=== PATIENT | male | born 1970 | race African-American/Black ===

== ENCOUNTER 2022-07-16 15:21 | Inpatient (IN) | payer BC ==
[~2022-07-16 15:21] MED LIST: Iopamidol-370 76% 500 ML 1 ML ONE
[2022-07-16] MEDS ORDERED: niCARdipine 25 MG/10 ML VIAL ONE (15:27)
[2022-07-16] MEDS ORDERED: Famotidine/PF 20 mg/2ml Vial ONE (15:53)
[2022-07-16] MEDS ORDERED: diphenhydrAMINE 50 MG/ML VIAL ONE (15:53)
[2022-07-16] MEDS ORDERED: methylPREDNISolone Sod Succ 40 MG VIAL ONE (15:53)
[2022-07-16 15:56] LABS: #Basophils 0.1 thou/uL (0.0-0.2); #Eosinphils 0.2 thou/uL (0.0-0.7); #Lymphocytes 2.3 thou/uL (1.20-3.40); #Monocytes 0.6 thou/uL (0.11-0.59); #Neutrophils 5.9 thou/uL (1.40-6.50); %Basophils 0.6 % (0.0-1.0); %Eosinophils 2.6 % (0.0-10.0); %Lymphocytes 24.8 % (21.0-51.0); %Monocytes 6.9 % (0.0-10.0); %Neutrophils 65.2 % (42.0-75.0); Hemoglobin 16.9 g/dL (14.0-18.0); Mean Corpuscular HGB CONC 32.9 g/dL (32.0-36.0); Mean Corpuscular Hemoglobin 29.2 pg (27.0-31.0); Mean Corpuscular Volume 88.8 fl (78.0-98.0); Mean Platelet Volume 8.3 fL (7.4-10.4); Platelet Count 261 thou/uL (130-400); RBC Distribution Width 12.4 % (11.5-14.5); Red Blood Cell (RBC) Count 5.79 mill/uL (4.70-6.10); White Blood Cell (WBC) Count 9.1 thou/uL (4.8-10.8)
[2022-07-16] MEDS ORDERED: Aspirin Chewable 81 MG TAB ONE (17:25)
[2022-07-16] MEDS ORDERED: Acetaminophen 650 MG Suppository PR PRN (17:41)
[2022-07-16] MEDS ORDERED: HYDROcodone/Acetaminophen 7.5/325 mg Tablet PO PRN (17:41)
[2022-07-16] MEDS ORDERED: Calcium Carbonate 500 MG ChewTAB PO PRN (17:41)
[2022-07-16] MEDS ORDERED: Acetaminophen 325 MG TAB PO PRN (17:41)
[2022-07-16] MEDS ORDERED: Bisacodyl 5 MG TAB PO PRN (17:41)
[2022-07-16 17:46] LABS: ALT (SGPT) 27 U/L (8-55); AST (SGOT) 42 U/L (5-34); Albumin 4.1 g/dL (3.5-5.0); Alkaline Phosphatase 87 U/L (40-110); Anion Gap 17 mmol/L (10-20); BUN (Urea Nitrogen) 21 mg/dL (8.9-20.6); Bilirubin, Total 0.6 mg/dL (0.2-1.2); Calc. Creatinine Clearance 0 mL/min (70-130); Calcium 9.5 mg/dL (7.8-10.44); Carbon Dioxide 25 mmol/L (22-29); Chloride 102 mmol/L (98-107); Estimated GFR 51; Globulin 4.3 g/dL (2.4-3.5); Glucose 140 mg/dL (70-105); Potassium 3.9 mmol/L (3.5-5.1); Protein, Total 8.4 g/dL (6.0-8.3); Sodium 140 mmol/L (136-145)
[2022-07-16] MEDS ORDERED: HumaLOG 300 UNITS/3 ML VIAL SC PRN (17:48)
[2022-07-16] MEDS ORDERED: Dextrose 50% Abboject 50 ML SYRINGE SLOW IVP PRN (17:48)
[2022-07-16] MEDS ORDERED: Dextrose 5% in Water 1,000 ML IV PRN (17:48)
[2022-07-16] MEDS ORDERED: Sodium Chloride 0.9% 1,000 ML IV SCH (18:00)
[2022-07-16 19:35] LABS: SARS-CoV-2 NAA Rapid Test Not Detected (NotDetected)
[2022-07-16] MEDS: niCARdipine 25 MG in Sodium Chloride 0.9% 250 ML 250 ML IVPB SCH (22:00)
[2022-07-16] MEDS: Sodium Chloride 0.9% 1,000 ML IV SCH (22:00)
[2022-07-16] MEDS: Atorvastatin Calcium 40 MG TAB PO SCH (22:00)
[2022-07-17 03:16] VITALS: BMI 35.4
[2022-07-17 04:01] LABS: #Lymphocytes 1.1 thou/uL (1.20-3.40); #Monocytes 0.2 thou/uL (0.11-0.59); #Neutrophils 11.8 thou/uL (1.40-6.50); %Basophils 0.1 % (0.0-1.0); %Eosinophils 0.1 % (0.0-10.0); %Lymphocytes 8.1 % (21.0-51.0); %Monocytes 1.4 % (0.0-10.0); %Neutrophils 90.3 % (42.0-75.0); Hemoglobin 15.6 g/dL (14.0-18.0); Mean Corpuscular HGB CONC 32.6 g/dL (32.0-36.0); Mean Corpuscular Hemoglobin 28.8 pg (27.0-31.0); Mean Corpuscular Volume 88.5 fl (78.0-98.0); Mean Platelet Volume 8.5 fL (7.4-10.4); Platelet Count 272 thou/uL (130-400); RBC Distribution Width 12.2 % (11.5-14.5); Red Blood Cell (RBC) Count 5.41 mill/uL (4.70-6.10); White Blood Cell (WBC) Count 13.1 thou/uL (4.8-10.8)
[2022-07-17 04:59] LABS: ALT (SGPT) 26 U/L (8-55); AST (SGOT) 25 U/L (5-34); Albumin 3.4 g/dL (3.5-5.0); Alkaline Phosphatase 85 U/L (40-110); Anion Gap 14 mmol/L (10-20); BUN (Urea Nitrogen) 22 mg/dL (8.9-20.6); Bilirubin, Total 0.7 mg/dL (0.2-1.2); Calc. Creatinine Clearance 89 mL/min (70-130); Calcium 8.8 mg/dL (7.8-10.44); Carbon Dioxide 24 mmol/L (22-29); Cardiac Risk 4.2 (Less than 4.5); Chloride 103 mmol/L (98-107); Cholesterol 182 mg/dl (< 200 Desired); Estimated GFR 59; Globulin 3.3 g/dL (2.4-3.5); Glucose 304 mg/dL (70-105); HDL Cholesterol 43 mg/dL (>60 Neg Risk); LDL Cholesterol, Calculated 132 mg/dL; Protein, Total 6.7 g/dL (6.0-8.3); Sodium 138 mmol/L (136-145); Triglycerides 35 mg/dL (Less than 150)
[2022-07-17] MEDS ORDERED: Electrolyte Replacement Protocol 1 EACH FS SCH (05:15)
[2022-07-17 06:06] LABS: Bacteria/HPF None Seen HPF (None Seen); Bilirubin Negative (Negative); Blood, Urine Trace (Negative); Clarity Clear (Clear); Glucose, Urine (Dipstick) Greater than 1000 mg/dL (Negative); Ketone, Urine 20 mg/dL (Negative); Leukocyte Negative Leu/uL (Negative); Nitrite Negative (Negative); Protein, Urine (Dipstick) 100 mg/dL (Neg-Trace); RBC/HPF 0-3 HPF (0-3); Squamous Epithelial None Seen HPF (0-3); Urobilinogen Normal mg/dL (Less than 2); WBC/HPF 0-3 HPF (0-3); pH, Urine 5.5 (5.0-9.0)
[2022-07-17 06:15] LABS: Magnesium 1.5 mg/dL (1.6-2.6)
[2022-07-17] MEDS: Potassium Chloride 20 MEQ in Premix Bag 1 BAG IVPB SCH ×2 (06:30→09:08)
[2022-07-17] MEDS ORDERED: glyBURIDE 5 MG TAB PO SCH (08:00)
[2022-07-17] MEDS ORDERED: Magnesium 2 GM/50 ML(in water) 2 GM in Premix Bag 1 BAG IVPB SCH (08:00)
[2022-07-17] MEDS: Sodium Chloride 0.9% 1,000 ML IV SCH (08:35)
[2022-07-17] MEDS: hydrALAZINE 25 MG TAB PO SCH ×3 (08:36→20:24)
[2022-07-17] MEDS: Aspirin 81 mg Enteric Coated Tablet PO SCH (08:41)
[2022-07-17] MEDS ORDERED: FLU VACC QS2022-23(6MOS UP)/PF 60 MCG/0.5 ML SYRINGE IM ONE (09:00)
[2022-07-17] MEDS ORDERED: cloNIDine 0.1mg/24 Hour PATCH TD SCH (09:00)
[2022-07-17] MEDS ORDERED: Carvedilol 25 MG TAB PO SCH (09:45)
[2022-07-17] MEDS: niCARdipine 25 MG in Sodium Chloride 0.9% 250 ML 250 ML IVPB SCH (10:12)
[2022-07-17] MEDS ORDERED: HumaLOG 300 UNITS/3 ML VIAL SC PRN (10:45)
[2022-07-17] MEDS ORDERED: Insulin Glargine 30 UNITS/0.3 ML VIAL SC SCH (10:45)
[2022-07-17] MEDS ORDERED: Losartan 25 MG TAB PO SCH (11:00)
[2022-07-17] MEDS ORDERED: Pantoprazole 40 MG VIAL IVP SCH (12:15)
[2022-07-17 14:39] LABS: Potassium 3.4 mmol/L (3.5-5.1)
[2022-07-17] MEDS: HumaLOG 300 UNITS/3 ML VIAL SC PRN (16:36)
[2022-07-17] MEDS: hydrALAZINE 20 MG/ML VIAL SLOW IVP PRN (17:06)
[2022-07-17] MEDS: Atorvastatin Calcium 40 MG TAB PO SCH (20:24)
[2022-07-17] MEDS: Labetalol HCl 100 MG/20 ML VIAL SLOW IVP PRN (20:28)
[2022-07-18] MEDS: hydrALAZINE 20 MG/ML VIAL SLOW IVP PRN ×4 (00:04→15:25)
[2022-07-18] MEDS: Labetalol HCl 100 MG/20 ML VIAL SLOW IVP PRN ×4 (01:40→14:03)
[2022-07-18 04:25] LABS: Anion Gap 12 mmol/L (10-20); BUN (Urea Nitrogen) 23 mg/dL (8.9-20.6); Calc. Creatinine Clearance 124 mL/min (70-130); Calcium 8.3 mg/dL (7.8-10.44); Carbon Dioxide 24 mmol/L (22-29); Chloride 107 mmol/L (98-107); Estimated GFR 87; Glucose 124 mg/dL (70-105); Magnesium 1.7 mg/dL (1.6-2.6); Sodium 140 mmol/L (136-145)
[2022-07-18 04:30] LABS: Potassium 2.8 mmol/L (3.5-5.1)
[2022-07-18] MEDS ORDERED: Electrolyte Replacement Protocol FS PRN (04:45)
[2022-07-18] MEDS ORDERED: Magnesium 2 GM/50 ML(in water) 2 GM in Premix Bag 1 BAG IVPB SCH (05:00)
[2022-07-18] MEDS: Potassium Chloride 20 MEQ TAB PO SCH ×2 (05:07→07:31)
[2022-07-18] MEDS: Aspirin 81 mg Enteric Coated Tablet PO SCH (07:31)
[2022-07-18] MEDS: hydrALAZINE 25 MG TAB PO SCH ×3 (07:31→20:31)
[2022-07-18] MEDS: Insulin Glargine 30 UNITS/0.3 ML VIAL SC SCH (07:31)
[2022-07-18] MEDS: Losartan 25 MG TAB PO SCH (07:31)
[2022-07-18] MEDS ORDERED: Carvedilol 25 MG TAB PO SCH (10:15)
[2022-07-18] MEDS: Senokot S 8.6-50 MG TAB PO PRN (12:00)
[2022-07-18] MEDS ORDERED: Amlodipine 10 MG TAB PO SCH (13:00)
[2022-07-18 14:24] LABS: Potassium 3.7 mmol/L (3.5-5.1)
[2022-07-18] MEDS: Carvedilol 25 MG TAB PO SCH (16:05)
[2022-07-18] MEDS: niCARdipine 25 MG in Sodium Chloride 0.9% 250 ML 250 ML IVPB SCH (16:30)
[2022-07-18] MEDS ORDERED: Vancomycin 1 GM in Premix Bag 1 BAG IVPB SCH ×2 (19:30→21:00)
[2022-07-18] MEDS ORDERED: VANCOMYCIN 1.25 GM/250 ML BAG 1.25 GM in Premix Bag 1 BAG IVPB SCH (20:00)
[2022-07-18] MEDS: Atorvastatin Calcium 40 MG TAB PO SCH (20:31)
[2022-07-18] MEDS ORDERED: traZODone HCl 50 MG TAB PO SCH (21:30)
[2022-07-19] MEDS: niCARdipine 25 MG in Sodium Chloride 0.9% 250 ML 250 ML IVPB SCH (03:01)
[2022-07-19 04:03] LABS: #Eosinphils 0.1 thou/uL (0.0-0.7); #Lymphocytes 1.6 thou/uL (1.20-3.40); #Monocytes 0.9 thou/uL (0.11-0.59); #Neutrophils 10.1 thou/uL (1.40-6.50); %Basophils 0.2 % (0.0-1.0); %Eosinophils 0.6 % (0.0-10.0); %Lymphocytes 12.3 % (21.0-51.0); %Monocytes 7.4 % (0.0-10.0); %Neutrophils 79.5 % (42.0-75.0); Hemoglobin 15.6 g/dL (14.0-18.0); Mean Corpuscular HGB CONC 32.1 g/dL (32.0-36.0); Mean Corpuscular Hemoglobin 28.9 pg (27.0-31.0); Mean Corpuscular Volume 90.1 fl (78.0-98.0); Mean Platelet Volume 8.3 fL (7.4-10.4); Platelet Count 288 thou/uL (130-400); RBC Distribution Width 12.9 % (11.5-14.5); Red Blood Cell (RBC) Count 5.39 mill/uL (4.70-6.10); White Blood Cell (WBC) Count 12.7 thou/uL (4.8-10.8)
[2022-07-19 04:25] LABS: ALT (SGPT) 20 U/L (8-55); AST (SGOT) 24 U/L (5-34); Albumin 3.7 g/dL (3.5-5.0); Alkaline Phosphatase 84 U/L (40-110); Anion Gap 13 mmol/L (10-20); BUN (Urea Nitrogen) 24 mg/dL (8.9-20.6); Bilirubin, Total 0.6 mg/dL (0.2-1.2); Calc. Creatinine Clearance 102 mL/min (70-130); Carbon Dioxide 23 mmol/L (22-29); Chloride 107 mmol/L (98-107); Estimated GFR 69; Globulin 3.5 g/dL (2.4-3.5); Glucose 198 mg/dL (70-105); Magnesium 1.9 mg/dL (1.6-2.6); Potassium 3.1 mmol/L (3.5-5.1); Protein, Total 7.2 g/dL (6.0-8.3); Sodium 140 mmol/L (136-145)
[2022-07-19] MEDS: HumaLOG 300 UNITS/3 ML VIAL SC PRN ×3 (06:33→16:55)
[2022-07-19] MEDS ORDERED: Potassium Chloride 20 MEQ TAB PO SCH (08:00)
[2022-07-19] MEDS ORDERED: Magnesium 2 GM/50 ML(in water) 2 GM in Premix Bag 1 BAG IVPB SCH (08:00)
[2022-07-19] MEDS: hydrALAZINE 25 MG TAB PO SCH ×3 (08:54→19:40)
[2022-07-19] MEDS: Losartan 25 MG TAB PO SCH (08:57)
[2022-07-19] MEDS: Carvedilol 25 MG TAB PO SCH ×2 (08:58→16:55)
[2022-07-19] MEDS: Insulin Glargine 30 UNITS/0.3 ML VIAL SC SCH (08:58)
[2022-07-19] MEDS ORDERED: Amlodipine 10 MG TAB PO SCH ×3 (09:00→09:15)
[2022-07-19] MEDS: Aspirin 81 mg Enteric Coated Tablet PO SCH (09:01)
[2022-07-19 16:15] LABS: Potassium 3.9 mmol/L (3.5-5.1)
[2022-07-19] MEDS: Labetalol HCl 100 MG/20 ML VIAL SLOW IVP PRN ×2 (16:55→23:07)
[2022-07-19] MEDS: hydrALAZINE 20 MG/ML VIAL SLOW IVP PRN (19:37)
[2022-07-19] MEDS: Atorvastatin Calcium 40 MG TAB PO SCH (19:40)
[2022-07-20] MEDS: hydrALAZINE 20 MG/ML VIAL SLOW IVP PRN ×2 (01:07→03:07)
[2022-07-20] MEDS ORDERED: cloNIDine 0.1 MG TAB PO PRN (02:11)
[2022-07-20 04:13] LABS: Bacteria/HPF None Seen HPF (None Seen); Bilirubin Negative (Negative); Blood, Urine Negative (Negative); Clarity Clear (Clear); Glucose, Urine (Dipstick) 50 mg/dL (Negative); Ketone, Urine 20 mg/dL (Negative); Leukocyte Negative Leu/uL (Negative); Nitrite Negative (Negative); Protein, Urine (Dipstick) 100 mg/dL (Neg-Trace); RBC/HPF 0-3 HPF (0-3); Specific Gravity, Urine 1.026 (1.002-1.036); Squamous Epithelial None Seen HPF (0-3); Urobilinogen Normal mg/dL (Less than 2); WBC/HPF 0-3 HPF (0-3); pH, Urine 5.5 (5.0-9.0)
[2022-07-20 04:16] LABS: Urine Culture Reflex No No
[2022-07-20] MEDS: Labetalol HCl 100 MG/20 ML VIAL SLOW IVP PRN (05:48)
[2022-07-20 06:16] LABS: #Eosinphils 0.1 thou/uL (0.0-0.7); #Lymphocytes 1.3 thou/uL (1.20-3.40); #Monocytes 0.9 thou/uL (0.11-0.59); #Neutrophils 9.3 thou/uL (1.40-6.50); %Basophils 0.1 % (0.0-1.0); %Eosinophils 0.9 % (0.0-10.0); %Lymphocytes 11.4 % (21.0-51.0); %Neutrophils 79.5 % (42.0-75.0); Hemoglobin 14.4 g/dL (14.0-18.0); Mean Corpuscular HGB CONC 30.6 g/dL (32.0-36.0); Mean Corpuscular Hemoglobin 27.7 pg (27.0-31.0); Mean Corpuscular Volume 90.3 fl (78.0-98.0); Mean Platelet Volume 8.8 fL (7.4-10.4); Platelet Count 272 thou/uL (130-400); RBC Distribution Width 12.9 % (11.5-14.5); Red Blood Cell (RBC) Count 5.21 mill/uL (4.70-6.10); White Blood Cell (WBC) Count 11.7 thou/uL (4.8-10.8)
[2022-07-20 06:57] LABS: ALT (SGPT) 20 U/L (8-55); AST (SGOT) 20 U/L (5-34); Albumin 3.3 g/dL (3.5-5.0); Alkaline Phosphatase 72 U/L (40-110); Anion Gap 12 mmol/L (10-20); BUN (Urea Nitrogen) 24 mg/dL (8.9-20.6); Bilirubin, Total 0.7 mg/dL (0.2-1.2); Calc. Creatinine Clearance 11 mL/min (70-130); Calcium 8.6 mg/dL (7.8-10.44); Carbon Dioxide 24 mmol/L (22-29); Chloride 107 mmol/L (98-107); Estimated GFR 72; Globulin 3.1 g/dL (2.4-3.5); Glucose 139 mg/dL (70-105); Magnesium 1.9 mg/dL (1.6-2.6); Potassium 3.1 mmol/L (3.5-5.1); Protein, Total 6.4 g/dL (6.0-8.3); Sodium 140 mmol/L (136-145)
[2022-07-20] MEDS: Carvedilol 25 MG TAB PO SCH ×2 (08:33→17:30)
[2022-07-20] MEDS: Aspirin 81 mg Enteric Coated Tablet PO SCH (08:36)
[2022-07-20] MEDS: Losartan 25 MG TAB PO SCH (08:40)
[2022-07-20] MEDS: Amlodipine 10 MG TAB PO SCH (08:40)
[2022-07-20] MEDS: Insulin Glargine 30 UNITS/0.3 ML VIAL SC SCH (09:09)
[2022-07-20] MEDS: hydrALAZINE 25 MG TAB PO SCH ×3 (09:09→20:00)
[2022-07-20] MEDS ORDERED: Potassium Chloride 20 MEQ TAB PO SCH (10:30)
[2022-07-20] MEDS: HumaLOG 300 UNITS/3 ML VIAL SC PRN ×2 (10:40→17:32)
[2022-07-20] MEDS: Senokot S 8.6-50 MG TAB PO PRN (11:45)
[2022-07-20] MEDS: Atorvastatin Calcium 40 MG TAB PO SCH (20:01)
[2022-07-21] MEDS: hydrALAZINE 20 MG/ML VIAL SLOW IVP PRN (02:11)
[2022-07-21] MEDS: Losartan 25 MG TAB PO SCH (08:40)
[2022-07-21] MEDS: hydrALAZINE 25 MG TAB PO SCH ×3 (08:40→21:02)
[2022-07-21] MEDS: Carvedilol 25 MG TAB PO SCH ×2 (08:41→16:24)
[2022-07-21] MEDS: Insulin Glargine 30 UNITS/0.3 ML VIAL SC SCH (08:41)
[2022-07-21] MEDS: Aspirin 81 mg Enteric Coated Tablet PO SCH (08:41)
[2022-07-21] MEDS: Amlodipine 10 MG TAB PO SCH (08:41)
[2022-07-21] MEDS: HumaLOG 300 UNITS/3 ML VIAL SC PRN ×2 (10:47→16:23)
[2022-07-21] MEDS: Atorvastatin Calcium 40 MG TAB PO SCH (21:02)
[2022-07-22 05:58] LABS: Anion Gap 11 mmol/L (10-20); BUN (Urea Nitrogen) 26 mg/dL (8.9-20.6); Calc. Creatinine Clearance 121 mL/min (70-130); Calcium 8.9 mg/dL (7.8-10.44); Carbon Dioxide 25 mmol/L (22-29); Chloride 107 mmol/L (98-107); Estimated GFR 85; Glucose 177 mg/dL (70-105); Magnesium 1.7 mg/dL (1.6-2.6); Potassium 3.2 mmol/L (3.5-5.1); Sodium 140 mmol/L (136-145)
[2022-07-22] MEDS ORDERED: Magnesium 2 GM/50 ML(in water) 2 GM in Premix Bag 1 BAG IVPB SCH (08:00)
[2022-07-22] MEDS ORDERED: Potassium Chloride 20 MEQ TAB PO SCH (08:00)
[2022-07-22] MEDS: hydrALAZINE 25 MG TAB PO SCH ×3 (08:34→19:43)
[2022-07-22] MEDS: Amlodipine 10 MG TAB PO SCH (08:34)
[2022-07-22] MEDS: Losartan 25 MG TAB PO SCH (08:34)
[2022-07-22] MEDS: Carvedilol 25 MG TAB PO SCH ×2 (08:34→17:26)
[2022-07-22] MEDS: Aspirin 81 mg Enteric Coated Tablet PO SCH (08:35)
[2022-07-22] MEDS: Insulin Glargine 30 UNITS/0.3 ML VIAL SC SCH (08:35)
[2022-07-22] MEDS: hydrALAZINE 20 MG/ML VIAL SLOW IVP PRN (10:32)
[2022-07-22] MEDS: HumaLOG 300 UNITS/3 ML VIAL SC PRN (17:26)
[2022-07-22] MEDS: Atorvastatin Calcium 40 MG TAB PO SCH (19:46)
[2022-07-22 21:08] VITALS: BP 185/96; TEMP 98.3
== END 2022-07-22 21:10 | DRG 65 ==
LOC: ERS 15:21 → SUATTDRO 15:21 → EEVIPCON 17:46 → CCU 17:46 → IMCU/EMU 07-19 18:14 → NEURO 07-20 15:32
PROVIDERS: ADMIT Student in an Organized Health Care Education/Training Program; ATTEND Student in an Organized Health Care Education/Training Program
DX: I63.511 Cerebral infarction due to unspecified occlusion or stenosis of right middle cerebral artery (principal); Z20.822 Contact with and (suspected) exposure to COVID-19; R29.709 NIHSS score 9; Z23 Encounter for immunization; G81.94 Hemiplegia, unspecified affecting left nondominant side; N17.9 Acute kidney failure, unspecified; R47.01 Aphasia; N18.9 Chronic kidney disease, unspecified; I12.9 Hypertensive chronic kidney disease with stage 1 through stage 4 chronic kidney disease, or unspecified chronic kidney disease; E78.5 Hyperlipidemia, unspecified; E11.22 Type 2 diabetes mellitus with diabetic chronic kidney disease; Z96.0 Presence of urogenital implants; E87.6 Hypokalemia; N52.9 Male erectile dysfunction, unspecified; E83.42 Hypomagnesemia; I66.23 Occlusion and stenosis of bilateral posterior cerebral arteries; E66.01 Morbid (severe) obesity due to excess calories; R47.81 Slurred speech; Z90.49 Acquired absence of other specified parts of digestive tract; Z91.041 Radiographic dye allergy status; Z88.0 Allergy status to penicillin; Z91.013 Allergy to seafood; Z68.35 Body mass index [BMI] 35.0-35.9, adult; Z86.73 Personal history of transient ischemic attack (TIA), and cerebral infarction without residual deficits; Z79.899 Other long term (current) drug therapy; Z79.02 Long term (current) use of antithrombotics/antiplatelets; Z79.4 Long term (current) use of insulin; Z79.84 Long term (current) use of oral hypoglycemic drugs; Z79.82 Long term (current) use of aspirin
CPT/HCPCS: 36415; 36416; 70450; 70496; 70498; 72170; 74018; 76770; 80048; 80053; 80061; 81001; 83036; 83735; 84484; 85025; 87040; 87804; 90471; 90686; 90732; 93005; 93306; 93975; 96365; 96366; 96375; C9113; G0008; G0009; J0360; J1200; J1815; J1956; J2920; J3370; J3475; J3480; J7050; Q9967; S0028; U0002; U0003; U0005